=== PATIENT | female | born 1975 | race Caucasian/White ===

== ENCOUNTER 2017-11-10 13:17 | Emergency (ER) | payer OTHER ==
[2017-11-10] MEDS: ACETAMINOPHEN 325 MG TAB PO (15:31)
== END 2017-11-10 15:59 | disposition home or self-care (01) ==
LOC: FTE 13:17
DX: R19.7 Diarrhea, unspecified (principal); R07.9 Chest pain, unspecified
CPT/HCPCS: 99283-25; Z7502

== ENCOUNTER 2018-02-12 02:02 | Emergency (ER) | payer OTHER | END 2018-02-12 03:22 | disposition home or self-care (01) | LOC: FTE 02:02 | DX: K62.89 Other specified diseases of anus and rectum (principal) | CPT/HCPCS: 99283-25; Z7502 ==